=== PATIENT | female | born 1950 | race Caucasian/White ===

== ENCOUNTER → 2022-02-04 | Outpatient (CLI) | payer OTHER | LOC: ECHO 11:14 | DX: I35.1 Nonrheumatic aortic (valve) insufficiency (principal) | CPT/HCPCS: ECHO; 93306 ==

== ENCOUNTER → 2022-03-20 | Outpatient (CLI) | payer OTHER | LOC: RAD 08:30 | DX: K21.9 Gastro-esophageal reflux disease without esophagitis (principal); R12 Heartburn | CPT/HCPCS: 74221 ==